=== PATIENT | female | born 1950 | race Caucasian/White ===

== ENCOUNTER 2021-07-07 08:58 | Day surgery (SDC) | payer MEDICARE, BC ==
[2021-07-07] MEDS ORDERED: Midazolam 1 MG/ML 2 ML SDV IV ONE (08:59)
[2021-07-07] MEDS ORDERED: fentaNYL 100 MCG/2 ML SDV IV ONE (08:59)
[2021-07-07] MEDS ORDERED: Sodium Chloride 0.9% 10 ML Syringe FLUSH PRN (09:00)
[2021-07-07] MEDS ORDERED: Lactated Ringers 1,000 ML IV PRN (09:00)
[2021-07-07] MEDS ORDERED: Tetracaine HCl/PF 0.5% 4 ML Bottle ONE (10:16)
[2021-07-07] MEDS ORDERED: Brimonidine 0.2% Ophth Soln 5 ML Bottle ONE (10:28)
[2021-07-07] MEDS ORDERED: Dexamethasone/Tobramycin 0.1-0.3% Ophth Susp 2.5 ML Bottle ONE (10:28)
[2021-07-07] MEDS ORDERED: acetaZOLAMIDE 500 MG Cap.ER PO ONE (11:00)
== END 2021-07-07 11:05 | disposition home or self-care (01) ==
LOC: FB.SDS 08:58
PROVIDERS: ATTEND Ophthalmology
DX: H25.813 Combined forms of age-related cataract, bilateral (principal); H02.881 Meibomian gland dysfunction right upper eyelid; H02.884 Meibomian gland dysfunction left upper eyelid; H40.013 Open angle with borderline findings, low risk, bilateral; H35.362 Drusen (degenerative) of macula, left eye; H25.13 Age-related nuclear cataract, bilateral; H52.223 Regular astigmatism, bilateral; I10 Essential (primary) hypertension; C91.10 Chronic lymphocytic leukemia of B-cell type not having achieved remission; Z98.890 Other specified postprocedural states; Z79.899 Other long term (current) drug therapy
CPT/HCPCS: 00142-QZ; A9270-GY; J2250; J3010